=== PATIENT | female | born 1945 | race Caucasian/White ===

== ENCOUNTER 2017-04-25 10:10 | Day surgery (SDC) | payer BC ==
[2017-04-23 13:25] LABS: BASOPHILS 0.4 %; BASOPHILS ABSOLUTE 0.02 10/3/uL (0.0-0.16); EOSINOPHILS 1.6 %; EOSINOPHILS ABSOLUTE 0.09 10/3/uL (0.0-0.53); HEMATOCRIT 30.2 % (36.0-48.0); HEMOGLOBIN 9.8 g/dL (12.0-16.0); IMMATURE GRANULOCYTES 0.2 %; IMMATURE GRANULOCYTES ABSOLUTE 0.01 10/3/uL (0.0-0.11); LYMPHOCYTES 41.6 %; MANUAL DIFF NO %; MEAN CORPUS HGB CONC 32.5 g/dL (32.0-36.0); MEAN CORPUSCULAR HEMOGLOB 27.6 pg (26.0-34.0); MEAN CORPUSCULAR VOLUME 85.1 fL (80-100); MEAN PLATELET VOLUME 8.9 fL (9.2-13.0); MONOCYTES 8.5 %; MONOCYTES ABSOLUTE 0.47 10/3/uL (0.21-1.20); NEUTROPHILS 47.7 %; NEUTROPHILS ABSOLUTE 2.64 10/3/uL (2.02-8.40); PLATELET COUNT 361 10/3/uL (150-400); RBC DISTRIBUTION WIDTH 15.7 % (12.0-16.0); RED CELL COUNT 3.55 10/6/uL (4.0-5.6); WHITE BLOOD CELLS 5.5 10/3/uL (4.5-10.5)
[2017-04-23 13:44] LABS: BUN (BLOOD UREA NITROGEN) 17 MG/DL (6-23); CALCIUM, SERUM 9.3 MG/DL (8.5-10.4); CHLORIDE, SERUM 105 MMOL/L (96-112); CO2 (CARBON DIOXIDE) 26 MMOL/L (24-34); CREATININE 0.87 MG/DL (0.55-1.02); GFR AFRICAN AMERICAN 78 ML/MIN (>=60); GFR NON AFRICAN AMERICAN 67 ML/MIN (>=60); POTASSIUM, SERUM 4.3 MMOL/L (3.5-5.3); SODIUM, SERUM 138 MMOL/L (135-148)
[2017-04-23 13:46] LABS: GLUCOSE, SERUM 85 MG/DL (60-99)
--- NOTE | ~2017-04-25 | OP ---
Record Of Operation [facility] [address] [place]. 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 PROCEDURE: Examination under anesthesia with dilation of the vagina and to obtain a Pap smear with HPV testing. CPT code 80880. ESTIMATED BLOOD LOSS: Minimal. COMPLICATIONS: None. FINDINGS AND INDICATIONS: This is a 71-year-old female, who has a history of anal cancer, who was treated with primary radiation therapy. She now has a stricture of the vagina and the labia are fused bilaterally. A pelvic exam is no longer possible. She has requested to be brought to the operating room for dilating the vagina and to unfuse the labia. The cervix could not be visualized secondary to her previous radiation therapy, although a Pap smear was obtained. HPV testing was also sent. The vagina was dilated and the labia were unfused. PROCEDURE IN DETAIL: The patient was taken to the operating room where she was placed in supine position for administration of general anesthesia. She was then placed in dorsal lithotomy position and prepped and draped in usual sterile fashion. Essentially, an aggressive pelvic exam was performed and the labia were unfused. The vagina was also dilated in a similar fashion and the Pap smear obtained. Estrace cream was then placed into the vagina in hopes of preventing further scarring and the anesthesia was reversed. The patient was taken to the recovery room in stable condition. ASHLEIGH/MARK Azael Page M.D. / [id number] CC: Rajendra Garcia M.D.
[~2017-04-25 10:10] MED LIST: *DENIES; ASAB PO; B COMPLEX PO; B12250T PO; BIOTIN10 MG OR; BIOTIN10 MG PO; CALCIUM PO; CITRACAL PO; Calcium PO; FISH OIL PO; FISH-EPA1000 MG PO; MULTIPLE VIT PO; MULTIVITAMI1 PO; SUPER B COMP OR; VAGIFEM25 MCG V; VIT D PO; VITAMIN B PO; VITAMIN B-121000 MC1 SL; VITAMIN D 3 PO; VITAMIN D1000 UNI1 PO; VITAMIN D2000 UNIT PO; VITAMIN D31000 UNIT PO; WOMEN'S MULTIVITAMIN PO
[2017-04-30 08:41] LABS: SOURCE: CERVIX
== END 2017-04-25 18:45 | disposition home or self-care (01) ==
LOC: SDC 10:10
PROVIDERS: Obstetrics & Gynecology Gynecologic Oncology
PROC: 0U7G7ZZ Dilation of Vagina, Via Natural or Artificial Opening (ICD-10-PCS; principal; 2017-04-25 10:45)
DX: N89.5 Stricture and atresia of vagina (principal); G43.909 Migraine, unspecified, not intractable, without status migrainosus; Z79.899 Other long term (current) drug therapy; Z96.653 Presence of artificial knee joint, bilateral; Z98.890 Other specified postprocedural states
CPT/HCPCS: 80048; 85025; 93005; A9270-GY; J0690; J2405; J3010